=== PATIENT | male | born 1960 | race Caucasian/White ===

== ENCOUNTER 2018-11-06 13:34 | Emergency (ER) | payer MEDICARE ==
[2018-11-06] MEDS ORDERED: Ketorolac Tromethamine 60 MG/2 ML VIAL ONE (15:29)
--- NOTE | 2018-11-06 16:39 | RAD ---
2 VIEWS RIGHT HIP: Date: 11/06/18 COMPARISON: 01/01/12. HISTORY: Right hip pain. FINDINGS: Two views of the right hip show the patient to be status post right hip arthroplasty without perihard michel lucency or fracture. IMPRESSION: Status post right hip arthroplasty without evidence of complication. POS: [facility]
== END 2018-11-06 16:17 | disposition home or self-care (01) ==
LOC: ERS 13:34
DX: M25.551 Pain in right hip (principal); I10 Essential (primary) hypertension; E78.00 Pure hypercholesterolemia, unspecified; F31.9 Bipolar disorder, unspecified
CPT/HCPCS: 96372; J1885

== ENCOUNTER 2025-06-18 08:40 | Outpatient (CLI) | payer MEDICARE | END 2025-06-18 08:41 | disposition home or self-care (01) | LOC: SCSMRI 08:40 | PROVIDERS: ATTEND Urology | DX: N35.911 Unspecified urethral stricture, male, meatal (principal) | CPT/HCPCS: 72197 ==